=== PATIENT | male | born 1955 | race Caucasian/White ===

== ENCOUNTER 2020-08-09 15:00 | Emergency (ER) | payer OTHER, SELFPAY ==
[~2020-08-09 15:00] MED LIST: Iopamidol 370 76% 100 ML VIAL ONE
[2020-08-09 15:46] LABS: #Basophils 0.1 thou/uL (0.0-0.2); #Eosinphils 0.2 thou/uL (0.0-0.7); #Lymphocytes 1.8 thou/uL (1.20-3.40); #Monocytes 0.6 thou/uL (0.11-0.59); #Neutrophils 6.1 thou/uL (1.40-6.50); %Basophils 1.4 % (0.0-1.0); %Eosinophils 2.6 % (0.0-10.0); %Lymphocytes 20.2 % (21.0-51.0); %Monocytes 6.6 % (0.0-10.0); %Neutrophils 69.1 % (42.0-75.0); Hemoglobin 14.3 g/dL (14.0-18.0); Mean Corpuscular HGB CONC 32.9 g/dL (32.0-36.0); Mean Corpuscular Hemoglobin 33.2 pg (27.0-31.0); Mean Platelet Volume 6.2 fL (7.4-10.4); Platelet Count 361 thou/uL (130-400); RBC Distribution Width 11.8 % (11.5-14.5); Red Blood Cell (RBC) Count 4.33 mill/uL (4.70-6.10); White Blood Cell (WBC) Count 8.8 thou/uL (4.8-10.8)
[2020-08-09 15:48] LABS: MDiff Complete? YES
[2020-08-09 16:00] LABS: ALT (SGPT) 21 U/L (8-55); AST (SGOT) 16 U/L (5-34); Albumin 3.4 g/dL (3.4-4.8); Alkaline Phosphatase 122 U/L (40-110); Anion Gap 19 mmol/L (10-20); BUN (Urea Nitrogen) 10 mg/dL (8.4-25.7); Bilirubin, Total 0.5 mg/dL (0.2-1.2); Calc. Creatinine Clearance 0 mL/min (70-130); Calcium 8.3 mg/dL (7.8-10.44); Carbon Dioxide 20 mmol/L (23-31); Chloride 103 mmol/L (98-107); Glucose 123 mg/dL (80-115); Potassium 4.7 mmol/L (3.5-5.1); Protein, Total 6.4 g/dL (5.8-8.1); Sodium 137 mmol/L (136-145)
--- NOTE | 2020-08-09 17:21 | RAD ---
PORTABLE CHEST: 08/09/20 An AP portable film at 1543 shows a normal sized heart and clear lungs. No acute infiltrate or effusi on was seen. There is no vascular congestion or edema. IMPRESSION: No acute findings. POS: HOME
--- NOTE | 2020-08-09 17:24 | CT ---
CT ANGIO OF THE CHEST WITH CONTRAST: 08/09/[address] of the chest was done after a bolus of IV contrast. Multiplanar and MIP reconstructions wer e done. There is moderate opacification of the pulmonary arteries yielding a medium sensitivity study. No lar ge emboli are seen in the main pulmonary arteries or the immediate proximal branches. Much beyond thi s, one would miss smaller emboli. There is no sign of aortic aneurysm or dissection. The mediastinum showed no sign of mass or significant adenopathy. The lungs show some scattered atelectasis throughou t but no focal pulmonary infiltrates of concern. There are no effusions. Scans into the upper abdomen showed no acute changes of concern. IMPRESSION: Medium sensitivity study showing no evidence of pulmonary emboli in the larger branches. Preliminary report called to Dr. Merritt at [id number] on 08/09/20. POS: HOME
== END 2020-08-09 17:13 | disposition home or self-care (01) ==
LOC: BURERS 15:00
DX: R06.00 Dyspnea, unspecified (principal); R00.0 Tachycardia, unspecified; E11.9 Type 2 diabetes mellitus without complications; E78.5 Hyperlipidemia, unspecified; I10 Essential (primary) hypertension; Z79.899 Other long term (current) drug therapy
CPT/HCPCS: 71045; 71275; 80053; 83880; 84484; 85025; 93005; Q9967

== ENCOUNTER 2021-02-24 12:23 | Observation (INO) | payer OTHER, SELFPAY ==
[2021-02-24 13:15] LABS: #Basophils 0.1 thou/uL (0.0-0.2); #Eosinphils 0.1 thou/uL (0.0-0.7); #Lymphocytes 1.5 thou/uL (1.20-3.40); #Monocytes 0.6 thou/uL (0.11-0.59); #Neutrophils 4.5 thou/uL (1.40-6.50); %Basophils 1.2 % (0.0-1.0); %Eosinophils 1.9 % (0.0-10.0); %Lymphocytes 22.6 % (21.0-51.0); %Monocytes 8.9 % (0.0-10.0); %Neutrophils 65.4 % (42.0-75.0); Hemoglobin 11.1 g/dL (14.0-18.0); Mean Corpuscular HGB CONC 33.1 g/dL (32.0-36.0); Mean Corpuscular Hemoglobin 37.8 pg (27.0-31.0); Mean Platelet Volume 5.5 fL (7.4-10.4); Platelet Count 297 thou/uL (130-400); Red Blood Cell (RBC) Count 2.94 mill/uL (4.70-6.10); White Blood Cell (WBC) Count 6.8 thou/uL (4.8-10.8)
[2021-02-24 13:23] LABS: ALT (SGPT) 48 U/L (8-55); AST (SGOT) 63 U/L (5-34); Albumin 2.9 g/dL (3.4-4.8); Alkaline Phosphatase 141 U/L (40-110); Anion Gap 22 mmol/L (10-20); BUN (Urea Nitrogen) 7 mg/dL (8.4-25.7); Bilirubin, Total 0.5 mg/dL (0.2-1.2); Calc. Creatinine Clearance 0 mL/min (70-130); Calcium 7.9 mg/dL (7.8-10.44); Carbon Dioxide 19 mmol/L (23-31); Chloride 91 mmol/L (98-107); Globulin 2.7 g/dL (2.4-3.5); Glucose 79 mg/dL (80-115); Protein, Total 5.6 g/dL (5.8-8.1); Sodium 128 mmol/L (136-145)
[2021-02-24 13:26] LABS: Macrocytosis MODERATE=16-30 cells (100X) (0-5/hpf)
[2021-02-24 13:27] LABS: MDiff Complete? YES
[2021-02-24] MEDS ORDERED: Cyclobenzaprine 10 MG TAB ONE (13:36)
[2021-02-24] MEDS ORDERED: Ketorolac Tromethamine 30 MG/ML VIAL ONE ×2 (13:36→19:48)
[2021-02-24 14:43] LABS: Bilirubin Negative (Negative); Blood, Urine Negative (Negative); Clarity Clear (Clear); Glucose, Urine (Dipstick) Negative (Negative); Ketone, Urine Negative (Negative); Leukocyte Negative (Negative); Nitrite Negative (Negative); Protein, Urine (Dipstick) Negative (Neg-Trace); Specific Gravity, Urine 1.015 (1.005-1.030)
[2021-02-24 16:17] LABS: Anion Gap 20 mmol/L (10-20); BUN (Urea Nitrogen) 7 mg/dL (8.4-25.7); Calc. Creatinine Clearance 0 mL/min (70-130); Calcium 7.4 mg/dL (7.8-10.44); Carbon Dioxide 20 mmol/L (23-31); Chloride 93 mmol/L (98-107); Glucose 87 mg/dL (80-115); Lactic Acid 6.5 mmol/L (0.5-2.2); Sodium 129 mmol/L (136-145)
[2021-02-24] MEDS ORDERED: Acetaminophen 500 MG TAB ONE (16:24)
[2021-02-24 18:57] VITALS: BMI 52.7
[2021-02-24] MEDS ORDERED: Ondansetron ODT 4 MG TAB SL PRN (19:45)
[2021-02-24] MEDS: Sodium Chloride 0.9% 1,000 ML IV SCH (19:45)
[2021-02-24] MEDS ORDERED: Acetaminophen 325 MG TAB PO PRN (19:45)
[2021-02-24] MEDS ORDERED: Ondansetron PF 4 MG/2 ML Vial IVP PRN (19:45)
[2021-02-24 20:03] LABS: SARS-CoV-2 NAA Rapid Test Not Detected (NotDetected)
[2021-02-24] MEDS ORDERED: Ibuprofen 600 MG TAB PO PRN (21:13)
[2021-02-24] MEDS: Lorazepam 1 MG TAB PO PRN (21:49)
[2021-02-25] MEDS: Sodium Chloride 0.9% 1,000 ML IV SCH ×2 (00:21→04:23)
[2021-02-25] MEDS ORDERED: Ibuprofen 600 MG TAB PO PRN (01:00)
[2021-02-25] MEDS ORDERED: Senokot S 8.6-50 MG TAB PO PRN (07:51)
[2021-02-25] MEDS ORDERED: Bisacodyl 5 MG TAB PO PRN (07:51)
[2021-02-25] MEDS ORDERED: metFORMIN 500 MG TAB PO SCH ×4 (08:00→21:00)
[2021-02-25 08:06] LABS: Lactic Acid 2.6 mmol/L (0.5-2.2)
[2021-02-25 08:09] LABS: Anion Gap 15 mmol/L (10-20); BUN (Urea Nitrogen) 9 mg/dL (8.4-25.7); Calc. Creatinine Clearance 258 mL/min (70-130); Calcium 7.2 mg/dL (7.8-10.44); Carbon Dioxide 23 mmol/L (23-31); Chloride 96 mmol/L (98-107); Glucose 101 mg/dL (80-115); Potassium 4.1 mmol/L (3.5-5.1); Sodium 130 mmol/L (136-145)
[2021-02-25 08:42] LABS: Thyroid Stimulating Hormone 0.6872 uIU/mL (0.35-4.94)
[2021-02-25] MEDS: Famotidine 20 MG TAB PO SCH ×2 (08:48→21:04)
[2021-02-25] MEDS: Ibuprofen 600 MG TAB PO SCH ×4 (08:49→21:04)
[2021-02-25] MEDS: Ferrous Sulfate 325 MG TAB PO SCH (08:50)
[2021-02-25] MEDS: Losartan Potassium 50 MG TAB PO SCH (08:51)
[2021-02-25] MEDS ORDERED: Non-Formulary Item 1 EACH (Omeprazole [Omeprazole] 20 MG Tab.Rap.Dr) PO SCH (09:00)
[2021-02-25] MEDS ORDERED: Non-Formulary Item 1 EACH (Ferrous Sulfate [Iron] 325 MG Tablet) PO SCH (09:00)
[2021-02-25] MEDS ORDERED: Non-Formulary Item 1 EACH (Atorvastatin Calcium [Atorvastatin Calcium] 80 MG Tablet) PO SCH (09:00)
[2021-02-25] MEDS: Lorazepam 1 MG TAB PO PRN ×2 (09:02→21:02)
[2021-02-25] MEDS: traMADol HCl 50 MG TAB PO PRN ×2 (09:02→15:59)
[2021-02-25 11:40] LABS: Hemoglobin A1c 5.4 % (4.0-6.0)
[2021-02-25 12:17] LABS: Free T4 (Free Thyroxine) 1.19 ng/dL (0.70-1.48)
[2021-02-25] MEDS ORDERED: Naloxone HCl 0.4 mg/ml Vial ONE (12:26)
[2021-02-25] MEDS ORDERED: Atorvastatin Calcium 40 MG TAB PO SCH (21:00)
[2021-02-26 06:49] LABS: Anion Gap 15 mmol/L (10-20); BUN (Urea Nitrogen) 9 mg/dL (8.4-25.7); Calc. Creatinine Clearance 250 mL/min (70-130); Calcium 7.4 mg/dL (7.8-10.44); Carbon Dioxide 25 mmol/L (23-31); Chloride 99 mmol/L (98-107); Glucose 100 mg/dL (80-115); Sodium 135 mmol/L (136-145)
[2021-02-26 06:51] LABS: Cardiac Risk 1.8 (Less than 4.5)
[2021-02-26 07:18] LABS: #Basophils 0.1 thou/uL (0.0-0.2); #Eosinphils 0.4 thou/uL (0.0-0.7); #Lymphocytes 1.2 thou/uL (1.20-3.40); #Monocytes 0.5 thou/uL (0.11-0.59); #Neutrophils 3.1 thou/uL (1.40-6.50); %Basophils 1.9 % (0.0-1.0); %Eosinophils 8.4 % (0.0-10.0); %Monocytes 8.9 % (0.0-10.0); %Neutrophils 58.8 % (42.0-75.0); Anisocytosis SLIGHT = 6-15 cells (100X) (0-5/hpf); Hemoglobin 11.2 g/dL (14.0-18.0); MDiff Complete? YES; Macrocytosis SLIGHT = 6-15 cells (100X) (0-5/hpf); Mean Corpuscular HGB CONC 33.5 g/dL (32.0-36.0); Mean Corpuscular Hemoglobin 37.8 pg (27.0-31.0); Mean Platelet Volume 5.5 fL (7.4-10.4); Platelet Count 288 thou/uL (130-400); RBC Distribution Width 15.8 % (11.5-14.5); Red Blood Cell (RBC) Count 2.96 mill/uL (4.70-6.10); Rouleaux Formation SLIGHT = 1-5 cells (100X) (None Seen); White Blood Cell (WBC) Count 5.3 thou/uL (4.8-10.8)
[2021-02-26] MEDS ORDERED: metFORMIN 500 MG TAB PO SCH (08:00)
[2021-02-26] MEDS: traMADol HCl 50 MG TAB PO PRN (08:48)
[2021-02-26] MEDS: Losartan Potassium 50 MG TAB PO SCH (08:51)
[2021-02-26] MEDS: Ferrous Sulfate 325 MG TAB PO SCH (08:52)
[2021-02-26 11:32] LABS: Iron 49 ug/dL (65-175); Iron Binding Capacity, Total 130 mcg/dL (261-462)
[2021-02-26] MEDS: Lorazepam 1 MG TAB PO PRN (14:30)
[2021-02-26] MEDS: Ibuprofen 600 MG TAB PO SCH (14:49)
[2021-02-26 17:41] VITALS: BP 116/71; TEMP 97.6
== END 2021-02-26 15:05 | disposition home or self-care (01) ==
LOC: BURERS 12:23 → BURMED 17:50 → OBSVTOIN 02-25 07:30 → INTOOBSV 02-25 07:30
PROVIDERS: ADMIT Family Medicine; ATTEND Family Medicine
DX: E86.0 Dehydration (principal); Z68.41 Body mass index [BMI] 40.0-44.9, adult; E87.1 Hypo-osmolality and hyponatremia; E87.2 Acidosis; I10 Essential (primary) hypertension; E66.9 Obesity, unspecified; G89.29 Other chronic pain; M54.9 Dorsalgia, unspecified; R00.0 Tachycardia, unspecified; E11.69 Type 2 diabetes mellitus with other specified complication; Z20.822 Contact with and (suspected) exposure to COVID-19; D50.0 Iron deficiency anemia secondary to blood loss (chronic); E78.5 Hyperlipidemia, unspecified; E78.00 Pure hypercholesterolemia, unspecified; I95.9 Hypotension, unspecified; Z98.84 Bariatric surgery status; Z87.891 Personal history of nicotine dependence; Z79.899 Other long term (current) drug therapy
CPT/HCPCS: 0241U; 36415; 71045; 72100; 72170; 80048; 80053; 80061; 81003; 82607; 82746; 83036; 83540; 83550; 83605; 83880; 84439; 84443; 84484; 85025; 85046; 93005; 94760; 96374; G0378; J1885; J2310

== ENCOUNTER 2021-03-23 11:32 | Emergency (ER) | payer OTHER ==
[2021-03-23] MEDS ORDERED: Ibuprofen 800 MG TAB ONE (12:56)
[2021-03-23 13:02] LABS: Bilirubin Negative (Negative); Blood, Urine Negative (Negative); Clarity Clear (Clear); Glucose, Urine (Dipstick) Negative (Negative); Ketone, Urine Negative (Negative); Leukocyte Negative (Negative); Nitrite Negative (Negative); Protein, Urine (Dipstick) Negative (Neg-Trace); Specific Gravity, Urine 1.015 (1.005-1.030); Urobilinogen 0.2 mg/dL (Less than 2); pH, Urine 5.5 (5.0-9.0)
== END 2021-03-23 14:00 | disposition home or self-care (01) ==
LOC: BURERS 11:32
DX: M25.562 Pain in left knee (principal); R00.0 Tachycardia, unspecified; E11.9 Type 2 diabetes mellitus without complications; E78.5 Hyperlipidemia, unspecified; E78.00 Pure hypercholesterolemia, unspecified; I10 Essential (primary) hypertension; Z79.84 Long term (current) use of oral hypoglycemic drugs; Z79.899 Other long term (current) drug therapy
CPT/HCPCS: 81003